=== PATIENT | male | born 1950 ===

== ENCOUNTER 2022-09-24 09:35 | Inpatient (IN) | payer OTHER ==
[~2022-09-24] VITALS: Ht 180.3 cm; Wt 119.3 kg
[2022-09-24] MEDS ORDERED: HYDROCHLOROTH12.5 MG PO (14:19)
[2022-09-24] MEDS ORDERED: SIMVASTATIN5 MG PO (14:19)
[2022-09-24] MEDS ORDERED: GLUMETZA500 MG PO (14:19)
[2022-09-24] MEDS ORDERED: CARDURA1 MG PO (14:19)
[2022-09-24] MEDS ORDERED: COZAAR25 MG PO (14:20)
[2022-09-24] MEDS ORDERED: GLIPIZIDE XL2.5 MG PO (14:20)
[2022-09-24] MEDS ORDERED: CHILDREN'S ASPI81 MG PO (14:20)
[2022-09-29] MEDS ORDERED: GABAPENTIN600 MG (09:13)
[2022-09-29] MEDS ORDERED: LOSARTAN POTAS100 MG (09:13)
[2022-09-29] MEDS ORDERED: GLIPIZIDE5 MG (09:13)
[2022-09-29] MEDS ORDERED: SIMVASTATIN20 MG (09:13)
[2022-09-29] MEDS ORDERED: HYDROCHLOROTHIA25 MG (09:13)
[2022-09-29] MEDS ORDERED: DOXAZOSIN MESYLA8 MG (09:13)
[2022-09-29] MEDS ORDERED: METFORMIN HCL500 M4 (09:13)
[2022-09-29] MEDS ORDERED: NIFEDIPINE ER60 M1 (09:13)
[2022-10-02] MEDS ORDERED: TRAM1TAB98 PO (16:50)
[2022-10-02] MEDS ORDERED: PEPCID AC20 MG PO (16:50)
[2022-10-02] MEDS ORDERED: INTESTINEX680 M1 PO (16:51)
== END 2022-10-02 17:14 | disposition home or self-care (01) | DRG 331 ==
LOC: O/R 09-29 09:07 → SURH 09-29 10:30
PROVIDERS: ADMIT Surgery; ATTEND Surgery
PROC: 0DBL4ZZ Excision of Transverse Colon, Percutaneous Endoscopic Approach (ICD-10-PCS; 2022-09-29)
PROC: 07BC4ZZ Excision of Pelvis Lymphatic, Percutaneous Endoscopic Approach (ICD-10-PCS; 2022-09-29)
PROC: 07BB4ZZ Excision of Mesenteric Lymphatic, Percutaneous Endoscopic Approach (ICD-10-PCS; 2022-09-29)
PROC: 3E0F7SF Introduction of Other Gas into Respiratory Tract, Via Natural or Artificial Opening (ICD-10-PCS; 2022-09-29)
PROC: 4A12X4Z Monitoring of Cardiac Electrical Activity, External Approach (ICD-10-PCS; 2022-09-29)
PROC: 0DTF4ZZ Resection of Right Large Intestine, Percutaneous Endoscopic Approach (ICD-10-PCS; principal; 2022-09-29 14:30)
DX: C18.2 Malignant neoplasm of ascending colon (principal); D12.3 Benign neoplasm of transverse colon; R59.0 Localized enlarged lymph nodes; R19.5 Other fecal abnormalities; R93.5 Abnormal findings on diagnostic imaging of other abdominal regions, including retroperitoneum; E11.9 Type 2 diabetes mellitus without complications; I11.9 Hypertensive heart disease without heart failure; G47.39 Other sleep apnea; E66.01 Morbid (severe) obesity due to excess calories